=== PATIENT | female | born 1965 | race African-American/Black ===

== ENCOUNTER 2018-09-09 20:08 | Emergency (ER) | payer SELFPAY ==
[~2018-09-09] VITALS: Ht 172.7 cm; Wt 68.0 kg
[2018-09-09 21:53] VITALS: BP 117/69
== END 2018-09-10 00:20 | disposition left against medical advice (07) ==
LOC: ER 20:08
DX: Z53.21 Procedure and treatment not carried out due to patient leaving prior to being seen by health care provider (principal)

== ENCOUNTER 2018-10-03 19:15 | Emergency (ER) | payer MEDICAID ==
[~2018-10-03] VITALS: Ht 175.3 cm; Wt 67.0 kg
[2018-10-03 19:31] VITALS: BP 115/84
== END 2018-10-03 22:18 | disposition left against medical advice (07) ==
LOC: ER 21:34
DX: R60.0 Localized edema (principal); Z53.21 Procedure and treatment not carried out due to patient leaving prior to being seen by health care provider

== ENCOUNTER 2018-10-04 06:48 | Emergency (ER) | payer MEDICAID ==
[~2018-10-04] VITALS: Ht 170.2 cm; Wt 62.0 kg
[2018-10-04] MEDS ORDERED: ACETAMINOPHEN 325MG TABLET PO ONE (08:30)
[2018-10-04 09:21] VITALS: BP 130/84
== END 2018-10-04 09:23 | disposition home or self-care (01) ==
LOC: ER 06:48
DX: M79.18 Myalgia, other site (principal); F17.200 Nicotine dependence, unspecified, uncomplicated; F12.10 Cannabis abuse, uncomplicated; Z59.0 Homelessness
CPT/HCPCS: 99283

== ENCOUNTER 2018-10-06 21:57 | Emergency (ER) | payer MEDICAID ==
[~2018-10-06] VITALS: Ht 170.2 cm; Wt 60.0 kg
[2018-10-06] MEDS ORDERED: FOLIC ACID 1 MG, THIAMINE HCL 100 MG, MVI, ADULT NO.1 10 ML in DEXTROSE 5% WATER 1,000 ML IV ONE ×4 (23:45)
[2018-10-06] MEDS ORDERED: ONDANSETRON HCL 4MG/2ML INJ IV ONE (23:45)
[2018-10-06 23:48] LABS: BASOPHILS % 0.9 % (0.0-2.0); EOSINOPHILS % 2.8 % (0.0-5.0); HEMATOCRIT. 37.4 % (36.0-48.0); LYMPHOCYTES % 38.5 % (20.0-50.0); MEAN CORPUSCULAR HEMOGLOBIN 30.2 pg (28.0-32.0); MEAN CORPUSCULAR VOLUME 93.8 fL (81.0-99.0); MEAN PLATELET VOLUME 7.5 fl (7.4-10.4); MONOCYTES % 8.6 % (2.0-8.0); NEUTROPHILS % 49.2 % (40.0-76.0); PLATELET 279 x1000/uL (130-400); RED BLOOD CELL COUNT 3.99 mill/uL (4.2-5.4); RED CELL DISTRIBUTION WIDTH 16.3 % (11.6-14.6)
[2018-10-06 23:55] LABS: CHLORIDE 112 mEq/L (98-107)
[2018-10-06 23:59] LABS: ETHANOL BLOOD 273 mg/dL
[2018-10-07] LABS: HCG SCREEN NEGATIVE
[2018-10-07 06:36] VITALS: BP 112/70
== END 2018-10-07 06:42 | disposition home or self-care (01) ==
LOC: ER 22:31
DX: T51.0X1A Toxic effect of ethanol, accidental (unintentional), initial encounter (principal); G92 Toxic encephalopathy; Y92.89 Other specified places as the place of occurrence of the external cause; F17.200 Nicotine dependence, unspecified, uncomplicated; F12.10 Cannabis abuse, uncomplicated; Z88.6 Allergy status to analgesic agent
CPT/HCPCS: 36415; 70450; 80048; 80307; 80320; 80329; 84703; 85025; 96365; 96375; 99284; J2405; J3411; J3490; J7070; G0480

== ENCOUNTER 2019-03-25 05:10 | Emergency (ER) | payer MEDICAID ==
[~2019-03-25] VITALS: Ht 160 cm; Wt 59.0 kg
[2019-03-25] MEDS ORDERED: ACETAMINOPHEN 500MG TABLET PO ONE (07:45)
[2019-03-25 09:29] VITALS: BP 131/80
== END 2019-03-25 09:32 | disposition left against medical advice (07) ==
LOC: ER 06:34
DX: M79.605 Pain in left leg (principal); M79.604 Pain in right leg; F12.10 Cannabis abuse, uncomplicated; F15.10 Other stimulant abuse, uncomplicated; F14.10 Cocaine abuse, uncomplicated; M19.90 Unspecified osteoarthritis, unspecified site; F31.9 Bipolar disorder, unspecified; F20.9 Schizophrenia, unspecified; F17.200 Nicotine dependence, unspecified, uncomplicated; Z88.6 Allergy status to analgesic agent
CPT/HCPCS: 99283

== ENCOUNTER 2019-04-10 00:20 | Emergency (ER) | payer MEDICAID ==
[~2019-04-10] VITALS: Ht 175.3 cm; Wt 66.0 kg
[2019-04-10 02:18] VITALS: BP 122/76
== END 2019-04-10 07:48 | disposition left against medical advice (07) ==
LOC: ER 00:20
DX: M79.672 Pain in left foot (principal); M79.671 Pain in right foot; Z59.0 Homelessness
CPT/HCPCS: 99283

== ENCOUNTER 2019-04-12 03:10 | Emergency (ER) | payer MEDICAID ==
[~2019-04-12] VITALS: Ht 175.3 cm; Wt 66.0 kg
[2019-04-12] MEDS ORDERED: ACETAMINOPHEN 325MG TABLET PO ONE (04:15)
[2019-04-12 09:20] VITALS: BP 125/75
== END 2019-04-12 09:50 | disposition home or self-care (01) ==
LOC: ER 03:37
DX: M79.605 Pain in left leg (principal); M79.604 Pain in right leg
CPT/HCPCS: 99283

== ENCOUNTER 2019-04-16 23:29 | Emergency (ER) | payer MEDICAID ==
[~2019-04-16] VITALS: Ht 175.3 cm; Wt 61.5 kg
[2019-04-16 23:39] VITALS: BP 120/85
[2019-04-17] MEDS ORDERED: ACETAMINOPHEN 325MG TABLET PO ONE (01:30)
== END 2019-04-17 06:21 | disposition left against medical advice (07) ==
LOC: ER 23:29
DX: G89.29 Other chronic pain (principal); M79.662 Pain in left lower leg; M79.661 Pain in right lower leg; M19.90 Unspecified osteoarthritis, unspecified site; Z88.6 Allergy status to analgesic agent
CPT/HCPCS: 99282

== ENCOUNTER 2019-05-16 19:54 | Emergency (ER) | payer MEDICAID ==
[~2019-05-16] VITALS: Ht 175.3 cm; Wt 61.0 kg
[2019-05-16 20:40] VITALS: BP 126/75
[2019-05-17] MEDS ORDERED: ACETAMINOPHEN 325MG TABLET PO ONE (00:15)
== END 2019-05-17 11:03 | disposition home or self-care (01) ==
LOC: ER 19:54
DX: R52 Pain, unspecified (principal); Z59.0 Homelessness; F20.9 Schizophrenia, unspecified
CPT/HCPCS: 99281